=== PATIENT | female | born 1955 ===

== ENCOUNTER 2020-11-03 09:21 | Day surgery (SDC) | payer OTHER | END 2020-11-03 16:00 | disposition home or self-care (01) | LOC: AMB-ENDOS 09:21 | PROVIDERS: ATTEND Colon & Rectal Surgery | DX: K62.89 Other specified diseases of anus and rectum (principal); K64.1 Second degree hemorrhoids; Z20.828 Contact with and (suspected) exposure to other viral communicable diseases; Z12.11 Encounter for screening for malignant neoplasm of colon ==